=== PATIENT | female | born 1980 | race Two or more races ===

== ENCOUNTER 2025-03-22 08:31 | Emergency (ER) | payer OTHER ==
[~2025-03-22] VITALS: Ht 157.5 cm; Wt 59.0 kg
[2025-03-22 08:33] VITALS: BP 126/86
[2025-03-22] MEDS ORDERED: HYDR473S4 PO (11:11)
[2025-03-22] MEDS ORDERED: DOXY100T2 PO (11:11)
[2025-03-22 11:42] VITALS: BP 126/86; TEMP 98.1; O2SAT 98
== END 2025-03-22 11:43 | disposition home or self-care (01) ==
LOC: ER 08:31
DX: J20.9 Acute bronchitis, unspecified (principal); R07.9 Chest pain, unspecified; Z20.822 Contact with and (suspected) exposure to COVID-19
CPT/HCPCS: 71045; A4606; A4663